=== PATIENT | female | born 1945 | race Caucasian/White ===

== ENCOUNTER → 2019-09-15 08:22 | Outpatient (BNVA) | payer MEDICARE, SELFPAY | PROVIDERS: PCP Nurse Practitioner Family; Referring Provider Neuromusculoskeletal Medicine & OMM; Visit Provider Nurse Practitioner Adult Health | DX: I67.9 Cerebrovascular disease, unspecified (principal); G45.4 Transient global amnesia | CPT/HCPCS: 99204 ==

== ENCOUNTER → 2020-03-07 08:19 | Outpatient (BNVA) | payer MEDICARE, SELFPAY | PROVIDERS: PCP Nurse Practitioner Family; Referring Provider Nurse Practitioner Family; Visit Provider Nurse Practitioner Adult Health | DX: G45.4 Transient global amnesia (principal); I67.9 Cerebrovascular disease, unspecified | CPT/HCPCS: 99213; 99441 ==

== ENCOUNTER → 2020-09-11 08:37 | Outpatient (BNVA) | payer MEDICARE, SELFPAY | PROVIDERS: PCP Nurse Practitioner Family; Referring Provider Nurse Practitioner Family; Visit Provider Nurse Practitioner Adult Health | DX: R41.3 Other amnesia (principal); G31.84 Mild cognitive impairment of uncertain or unknown etiology | CPT/HCPCS: 99213 ==

== ENCOUNTER → 2021-09-10 08:57 | Outpatient (BNVA) | payer MEDICARE, SELFPAY | PROVIDERS: PCP Neuromusculoskeletal Medicine & OMM; Referring Provider Neuromusculoskeletal Medicine & OMM; Visit Provider Nurse Practitioner Adult Health | DX: I67.9 Cerebrovascular disease, unspecified (principal); G45.4 Transient global amnesia | CPT/HCPCS: 99213 ==

== ENCOUNTER → 2022-09-02 08:37 | Outpatient (BNVA) | payer MEDICARE, SELFPAY | PROVIDERS: PCP Neuromusculoskeletal Medicine & OMM; Referring Provider Neuromusculoskeletal Medicine & OMM; Visit Provider Nurse Practitioner Adult Health | DX: I67.9 Cerebrovascular disease, unspecified (principal); G45.4 Transient global amnesia; Z79.02 Long term (current) use of antithrombotics/antiplatelets | CPT/HCPCS: 99213 ==

== ENCOUNTER 2022-10-23 03:29 | Outpatient (CLI) | payer MEDICARE, SELFPAY ==
--- NOTE | 2022-10-23 | DI.RAD_ITS ---
Exam(s) XR HIP RT COMPLETE AP PELVIS EXAM: XR HIP RT COMPLETE AP PELVIS INDICATION: PAIN RT HIP, [id number]. COMPARISON: No exams were available for comparison TECHNIQUE: 2D digital imaging was performed. Two views. FINDINGS: There is mild narrowing the right hip joint space. There is mild acetabular spurring. The left hip joint space is maintained. The SI joints and pubic symphysis are unremarkable. There are mild enthe sophytes from the iliac wings and greater trochanters. Surgical clips are noted in both groin region s. IMPRESSION: Wibx-ny-symmkaya degenerative changes of the right hip. DATA REPOSITORY: RADIATION DOSE DELIVERED:
== END 2022-10-23 03:49 ==
LOC: DI 03:29
PROVIDERS: PCP Neuromusculoskeletal Medicine & OMM; Visit Provider Neuromusculoskeletal Medicine & OMM
DX: M16.11 Unilateral primary osteoarthritis, right hip (principal)
CPT/HCPCS: 73502

== ENCOUNTER → 2022-12-05 08:48 | Outpatient (BNVA) | payer MEDICARE, SELFPAY | PROVIDERS: PCP Neuromusculoskeletal Medicine & OMM; Referring Provider Neuromusculoskeletal Medicine & OMM; Visit Provider Student in an Organized Health Care Education/Training Program | DX: M16.11 Unilateral primary osteoarthritis, right hip (principal) | CPT/HCPCS: 99213 ==

== ENCOUNTER 2023-01-29 02:25 | Outpatient (CLI) | payer MEDICARE, SELFPAY ==
[2023-01-29 15:32] LABS: HCT 43.9 % (36.0-46.0); HGB 14.3 g/dL (11.2-15.7); MCH 30.7 pg (27.0-33.0); MCHC 32.6 % (32.0-36.0); MCV 94 fL (80-95); MPV 9.1 fL (8.0-11.0); Platelet Count 266 10^3/uL (130-400); RBC 4.66 10^6/uL (3.93-5.22); RDW-SD 48.4 fL; WBC 7.29 10^3/uL (4.4-10.8)
[2023-01-29 15:55] LABS: Anion Gap 8.2 mmol/L (3-11); BUN 15 mg/dL (7-18); CO2 27.8 mmol/L (21.0-32.0); CREATININE 1.1 mg/dL (0.55-1.02); Calcium 9.7 mg/dL (8.5-10.1); Chloride 103 mmol/L (98-107); Glucose 99 mg/dL (74-106); Potassium 4.2 mmol/L (3.5-5.1); Sodium 139 mmol/L (136-145)
== END 2023-01-29 02:26 | disposition home or self-care (01) ==
LOC: LBO 02:25
PROVIDERS: PCP Neuromusculoskeletal Medicine & OMM; Visit Provider Student in an Organized Health Care Education/Training Program
DX: Z01.818 Encounter for other preprocedural examination (principal); M16.11 Unilateral primary osteoarthritis, right hip
CPT/HCPCS: 36415; 80048; 85027

== ENCOUNTER 2023-01-29 16:56 | Outpatient (CLI) | payer MEDICARE, SELFPAY ==
--- NOTE | 2023-01-29 14:13 | DI.RAD_ITS ---
Exam(s) XR PELVIS AP EXAM: XR PELVIS AP CLINICAL HISTORY: PRE OP R KALEN. TECHNIQUE: 2D digital imaging was performed. Supine AP with template ball. COMPARISON: CR XR HIP RT COMPLETE AP PELVIS from 10/23/2022 FINDINGS: Moderate narrowing of right hip joint space. Left hip joint space is maintained. Enthesophytes are noted at greater trochanters and iliac wings. Surgical clips and bilateral groin region. IMPRESSION: Stable degenerative changes of the right hip.. DATA REPOSITORY: RADIATION DOSE DELIVERED:
== END 2023-01-29 16:57 | disposition home or self-care (01) ==
LOC: DIORS 16:58
PROVIDERS: PCP Neuromusculoskeletal Medicine & OMM; Visit Provider Physician Assistant
DX: M16.11 Unilateral primary osteoarthritis, right hip (principal); Z01.818 Encounter for other preprocedural examination
CPT/HCPCS: 36415; 80048; 85027; 72170

== ENCOUNTER 2023-02-04 05:51 | Day surgery (SDC) | payer MEDICARE, SELFPAY ==
[2023-02-04] VITALS (14 sets, daily range): BP systolic 139–200; BP diastolic 64–112; PULSE 63–75; RESP 14–18; TEMP 36.1–36.5; O2SAT 94–97; BMI 40.2
[2023-02-04] MEDS: Celecoxib 200 MG CAP 400 MG PO (06:32)
[2023-02-04] MEDS: Acetaminophen 500 MG TAB 1000 MG PO (06:32)
[2023-02-04] MEDS: Lactated Ringers 1,000 ML 80 ML IV (06:55)
--- NOTE | 2023-02-04 06:58 | W.ANESPRE ---
General Info Date of Service Date Performed: 02/04/23 Height: 5 ft 5 in Weight: 109.8 kg Body Mass Index (BMI): 40.2 Surgical Procedure: Operation Date: 02/04/23 07:50 Proposed Procedure Side Surgeon p Hip Total Hip Anterior, ACTIS Right David Alfaro MD Meds Allergies and Home Medications Allergies Allergy/AdvReac Type Severity Reaction Status Date / Time animal dander Allergy Verified 02/04/23 06:12 house dust Allergy Verified 02/04/23 06:12 ragweed pollen Allergy Verified 02/04/23 06:12 Home Medication Medication Instructions Recorded calcium carbonate 500 mg-vitamin 1 tab PO BID 09/01/19 D3 10 mcg (400 unit) tablet hydrocortisone 2.5 % topical cream 1 applic topical BID PRN 09/01/19 simvastatin 20 mg tablet 20 mg PO QHS 09/01/19 furosemide 20 mg tablet 20 mg PO DAILY 09/10/21 metoprolol succinate 50 mg 50 mg PO DAILY 09/10/21 tablet,extended release 24 hr triamcinolone acetonide 0.1 % 1 applic topical BID 09/10/21 topical ointment clopidogrel 75 mg tablet See Rx Instructions .Route 04/22/22 .COMPLEX #90 tabs bupropion HCl 300 mg 24 hr tablet, 150 mg PO QAM 09/02/22 extended release acetaminophen 500 mg tablet 1,000 mg (2 x 500 mg) PO TID #90 02/04/23 tabs betamethasone, augmented 0.05 % applic topical 02/04/23 topical ointment celecoxib 200 mg capsule 200 mg PO BID #60 caps 02/04/23 dexamethasone 4 mg tablet 4 mg PO DAILY #2 tabs 02/04/23 oxycodone 5 mg tablet 5 mg PO Q4H PRN pain #20 tabs 02/04/23 pantoprazole 40 mg tablet,delayed 40 mg PO DAILY #30 tabs 02/04/23 release Current Visit Medications: Current Medications Generic Name Dose Route Start Last Admin Trade Name Freq PRN Reason Stop Dose Admin Acetaminophen 1,000 mg 02/04/23 06:00 02/04/23 06:32 Acetaminophen 500 Mg Tab PO 03/06/23 05:59 1,000 mg PREOP MANUELA Administration Celecoxib 400 mg 02/04/23 06:00 02/04/23 06:32 Celecoxib 200 Mg Cap PO 03/06/23 05:59 400 mg PREOP MANUELA Administration Tranexamic Acid 1,000 mg/ 60 mls @ 360 mls/hr 02/04/23 06:00 Sodium Chloride IV 03/06/23 05:59 PREOP MANUELA Ringer's Solution 1,000 mls @ 80 mls/hr 02/04/23 06:00 IV 02/04/23 23:59 INFUSION MANUELA Cefazolin Sodium/Dextrose 2 gm in 50 mls @ 100 mls/hr 02/04/23 06:00 Ancef Duplex IVPB 02/04/23 23:59 PREOP MANUELA IV Miscellaneous Supplies 1 each 02/04/23 06:00 Iv Access IV 02/04/23 23:59 DIRECTED MANUELA Sodium Chloride 0 ml 02/04/23 06:00 Normal Saline Flush 10 Ml Syr IV 02/04/23 23:59 PRN PRN Sodium Chloride 0 ml 02/04/23 06:00 Normal Saline 10 Ml Vial IJ 02/04/23 23:59 DIRECTED PRN Sterile Water 0 ml 02/04/23 06:00 Water,Injection,Sterile 10 Ml Vial IJ 02/04/23 23:59 DIRECTED PRN PFSH Active Problems Active Problems: Problem Status Onset Code Primary osteoarthritis of right hip M16.11 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 Small vessel disease, cerebrovascular I67.9 Medical History Medical History Arthralgia of ankle Arthropathy Chronic left hip pain Contact dermatitis Depressive disorder Diverticulitis Fibromyalgia Hyperlipidemia Low back pain Memory impairment Mild intermittent asthma MATHEWS (nonalcoholic steatohepatitis) Obesity Obstructive sleep apnea Osteoporosis Pain, joint, knee, right Phlebitis Rosacea Tension type headache Varicose vein of leg Surgical History Surgical History H/O vein stripping Hx of section Tobacco Smoking/Tobacco Use Status: Former Tobacco Use Alcohol Alcohol Intake: current Alcohol intake frequency: a few times a week Alcohol type: beer and wine Details: 2-3 GLASSES OF WINE WEEK Substance Use Substance use: Never Substance use type: does not use Details: alcohol: t-4, 2 glasses of wine Vital Signs and Lab Results Vital Signs Most Recent Vital Signs in EMR: Most Recent Vital Signs Temp Pulse Resp BP Pulse Ox 36.3 C L 75 18 170/103 H 97 11/15/23 06:17 02/04/23 06:17 02/04/23 06:17 02/04/23 06:17 02/04/23 06:17 Lab Results Blood Type / Crossmatch: No Data to Display Complete Blood Count: White Blood Count 7.29 10^3/uL (4.4-10.8) 01/29/23 15:25 Red Blood Count 4.66 10^6/uL (3.93-5.22) 01/29/23 15:25 Hemoglobin 14.3 g/dL (11.2-15.7) 01/29/23 15:25 Hematocrit 43.9 % (36.0-46.0) 01/29/23 15:25 Platelet Count 266 10^3/uL (130-400) 01/29/23 15:25 Complete Metabolic Panel: Sodium 139 mmol/L (136-145) 01/29/23 15:25 Potassium 4.2 mmol/L (3.5-5.1) 01/29/23 15:25 Chloride 103 mmol/L (98-107) 01/29/23 15:25 Carbon Dioxide 27.8 mmol/L (21.0-32.0) 01/29/23 15:25 BUN 15 mg/dL (7-18) 01/29/23 15:25 Creatinine 1.1 mg/dL (0.55-1.02) H 01/29/23 15:25 Est GFR (CKD-EPI 2020) 52.40 (mL/min/1.73m2) 01/29/23 15:25 Calcium 9.7 mg/dL (8.5-10.1) 01/29/23 15:25 Glucose 99 mg/dL (74-106) 01/29/23 15:25 Liver Function Panel: No Data to Display Coagulation Panel: No Data to Display Cardiac Panel: No Data to Display Arterial Blood Gas: No Data to Display Venous Blood Gas: No Data to Display Pancreas Panel: No Data to Display Thyroid Panel: No Data to Display Infectious Disease: No Data to Display Blood Cultures: No Data to Display Toxicology Panel: No Data to Display Anesthesia Assessment and Plan Anesthesia History Personal History: No History of Anesthesia Complications Family History: No Family History of Anesthesia Complications Exercise Tolerance Exercise Tolerance: Metabolic Equivalents<4 Pertinent Negatives Pertinent Negatives: No Symptoms of GERD, No Major Cardiovascular Symptoms or Complaints and No Major Pulmonary Symptoms or Complaints Cardiac & Pulmonary Exam Cardiac Exam: Normal S1/S2 Heart Sounds Pulmonary Exam: Clear Bilateral Breath Sounds Implantable Cardiac Device Does patient have a Pacemaker or an ICD?: No Airway Exam Known Difficult Airway: No Mallampati Class: 3 Mouth Opening: Normal (> 3cm) Thyromental Distance: Greater than 3 cm Neck Range of Motion: Full ROM Neck Circumference: Thick Teeth Condition: Normal Dentition ASA Classification ASA Score: ASA 3 Emergency Case?: No NPO Status NPO Status: NPO Clears >2 hours, Solids >8 hours Anesthesia Plan Resuscitation Status: Full Code Anesthesia Technique: Spinal Anesthesia Airway Planned: Natural Airway Monitors Used: Standard Monitors Preoperative Comments:: GETA backup if difficult spinal, off Plavix 6 days ALYSSIA, instructed preop to use CPAP for any nap/sleep for next couple of days
--- NOTE | 2023-02-04 07:00 | DI.RAD_ITS ---
Exam(s) XR HIP RT IN OR EXAM: XR HIP RT IN OR CLINICAL HISTORY: right hip osteoarthritis. TECHNIQUE: 2D digital imaging was performed. COMPARISON: No exams were available for comparison FINDINGS: Fluoroscopy provided during hip arthroplasty. See procedure report for details Total fluoroscopy time 44 seconds IMPRESSION: Radiation exposure index/cumulative dose: iggy Mackenzie= 11.473mGy DATA REPOSITORY: RADIATION DOSE DELIVERED:
--- NOTE | 2023-02-04 07:16 | PDOC.DSDIS_ITS ---
Date of service: 02/04/23 Time of Service: 07:16 Discharge Plan Disposition Patient Disposition: Home Condition: Good Discharge Details Reason For Visit: R THR Attending Provider: David Alfaro Primary Care Provider: Martin George [facility] and New Rx's Prescriptions: New acetaminophen 500 mg tablet 1,000 mg PO TID Qty: 90 3RF celecoxib 200 mg capsule 200 mg PO BID Qty: 60 0RF pantoprazole 40 mg tablet,delayed release (DR/EC) 40 mg PO DAILY Qty: 30 0RF dexamethasone 4 mg tablet 4 mg PO DAILY Qty: 2 0RF oxycodone 5 mg tablet 5 mg PO Q4H MDD 6 tabs PRN (Reason: pain) Qty: 20 0RF aspirin 81 mg tablet,delayed release (DR/EC) 81 mg PO DAILY Qty: 30 0RF Continued metoprolol succinate 50 mg tablet extended release 24 hr 50 mg PO DAILY furosemide 20 mg tablet 20 mg PO DAILY triamcinolone acetonide 0.1 % ointment 1 applic topical BID bupropion HCl 300 mg tablet extended release 24 hr 150 mg PO QAM Rx Instructions: take one tablet by mouth everyday by oral route for 30 days. calcium carbonate-vitamin D3 500 mg(1,250mg) -400 unit tablet 1 tab PO BID hydrocortisone 2.5 % cream 1 applic TP BID PRN simvastatin 20 mg tablet 20 mg PO QHS clopidogrel 75 mg tablet See Rx Instructions .ROUTE .COMPLEX Qty: 90 3RF Dose Instruction: TAKE 1 TABLET BY MOUTH DAILY Rx Instructions: TAKE 1 TABLET BY MOUTH DAILY betamethasone, augmented 0.05 % ointment TOPICAL Patient Comments: APPLY TOPICALLY TWO TIMES A DAY Discharge Instructions Additional Instructions: Total Hip Discharge Instructions Activity: The most important activity is to walk. You should try to take short walks a few times a day. You have no restrictions on movement or positioning, but do not try to force what you do. You will find some stiffness and weakness with hip flexion (lifting your knee). Do not try to strengthen this too early, continue to practice walking and stairs and this will come. - Outpatient physical therapy can be helpful to help return you to a normal gait and improve your flexibility and strength. This can start around 2 weeks. For some patients, it?s not necessary. Usually this is determined at the time of discharge or at the first post-operative visit. - You should wear the MURPHY hose on both legs for 2 weeks. Dressing: Keep the surgical dressing in place for at least one week. After the first week it may be removed and replace with light gauze and tape or nothing. It may get wet after 3 days but avoid soaking the dressing. If it gets wet, just lightly pat dry. It is important to always keep some gauze between skin folds, especially when you are sitting. Spend some time with the wound exposed when you are lying flat as the incision does wrinkle onto itself. Medications: - You should take Tylenol and an anti-inflammatory Celebrex as your primary pain control medications. If the Celebrex is too expensive or not covered, please call the office for another alternative (Advil/Ibuprofen or Naproxen/Aleve). - You have been prescribed a stronger pain medication Oxycodone for breakthrough pain, take as needed as prescribed. - You have also been prescribed a stomach acid reduction agent Pantoprozole to help reduce stomach acid and reflux. - You have also been prescribed Decadron to help with post-operative nausea and pain. You will take this for two days starting tomorrow. - You will will continue your clopidogrel along with an asprin daily which will help with DVT prevention. - If you have constipation you should take Colace or Miralax (both [id number]). It takes most people 3-4 days to have a bowel movement. Follow-up: 2 weeks If you have any acute concerns or questions, please do not hesitate to contact the office at [phone]. You may contact Dr. Alfaro with any questions after hours through the hospital at [phone] or on his cell phone at [phone]. Stand Alone Forms: Anesthesia Discharge Inst., Sharron Elias (DSU) Referrals: David Alfaro MD [ [facility] STAFF PHYSICIAN] - 02/19/23 11:45 am Equipment/Supplies: Walker Activity:: Activity as Tolerated Shower/Bathe:: 72 hours Diet:: As Tolerated Discharge Orders Discharge Orders: Discharge Order (Routine); Ordered 02/04/23 Ordered By: Clement Owen DS: Diagnosis Discharge Diagnosis (1) Primary osteoarthritis of right hip: Status: Acute
--- NOTE | 2023-02-04 07:18 | NUR.NOTE ---
0718: aware of red area in R groin. spoke to pt. about the area. Nursing Note:
[2023-02-04] MEDS: ceFAZolin 2 GM/50 ML BAG IVPB (07:30)
[2023-02-04] MEDS: fentaNYL 100 MCG/2 ML VIAL IVP ×4 (09:19→10:34)
--- NOTE | 2023-02-04 09:39 | W.PM.OP ---
Date of service: 02/04/23 Time of Service: 07:40 Operative Note Operative Note DATE OF PROCEDURE: 02/04/23 PRE-OP DIAGNOSIS: Right Hip Osteoarthritis POST-OP DIAGNOSIS: same PROCEDURE: Right Anterior Total Hip Arthroplasty SURGEON: David Alfaro LEGGER PRESS OPERATOR: Clement Owen ANESTHESIA TYPE: Spinal Refer to Anesthesia Record ESTIMATED BLOOD LOSS: 100 PATHOLOGY: none sent TOURNIQUET TIME: 0 COMPLICATIONS: None Patient was transported to: PACU Patient's condition: stable Implants: 1. Depuy [place] Acetabular Component, 50mm 2. Depuy Acetabular Liner, [id number] 3. Depuy Actis Standard Collared Femoral Stem, Size 5 4. Depuy Altrx Ceramic Femoral Head, Size 32+5mm Indications: I have seen Hawa in clinic for symptoms of hip arthritis, confirmed with radiographic findings. She has exhausted nonoperative methods and was having significant limitations in daily function and desired better function and less pain. I discussed the technical details of a hip replacement. I explained the risks of the procedure to include, but not limited to, bleeding, infection, pain, stiffness, fracture, damage to nerves and vessels, damage to muscles and tendons, loosening, instability, leg length inequality, need for repeat procedure, blood clot and cardiopulmonary demise. Despite these risks, Hawa elected to proceed. Findings: There was significant signs of arthritis throughout the hip. Procedure Description: Hawa was greeted in the preoperative holding area where the correct side was identified and marked. The consent was reviewed with the patient and signed. The history and physical was updated. All questions were answered. She was taken back to the operating room. A spinal anesthestic was then administered. The feet were wrapped with cast padding and Coban and then placed into the boot liners and then into the boots. Care was taken to protect the skin and make sure the heels were fully down and the boots were stable. The patient was then positioned onto the HANA table. Both legs were held in a neutral position. SCDs were applied. The patient was then slid down onto a peroneal post. Prophylactic antibiotics in the form of Cefazolin were administered. 1g of Tranxemic Acid was given intravenously within 30 minutes of incision. The right leg was then prepped with Chloraprep and draped in a standard fashion. A second prep with Chloraprep was performed prior to placement of a shower-curtain type drape with Iodine impregnated skin protection. A timeout to confirm correct identity, side and site, procedure, allergies, anesthesia, and medical concerns was performed. An obliquely oriented incision was made starting lateral to the ASIS and running distal over the Tensor Fascia Nora (TFL) muscle belly toward the fibular head, approximately 10cm. The skin and soft tissue was dissected sharply, through Jacey?s fascia, and to the fascia of the TFL. With the fascia and superior border of the IT band identified, the fascia was incised with a new knife just above any perforators from the IT band. The TFL muscle belly was bluntly dissected away from the fascia and moved laterally. The fat between TFL and rectus was identified to ensure the dissection was not within the TFL. Blunt dissection created space between abductors and the capsule and retractor was placed over the lateral femoral neck. The fibers of the rectus femoris tendon were identified and these were freed from the anterior capsule. A second cobra retractor was placed around the medial femoral neck. The TFL was further retracted laterally to show the deep fascia. Careful dissection through this layer identified three main crossing vessels of the lateral femoral circumflex. These were cauterized in multiple locations and then cut without any noticeable bleeding. The TFL was further released bluntly from the deep fascia to expose anterior hip capsule and fat The Magdaleno orthopaedic retractor was then placed beneath the TFL and against sartorius and medial soft tissues to protect and retract the soft tissues. A T-capsulotomy was then performed starting at the superior lateral acetabulum and moving distally to the intertrochanteric ridge. These capsular flaps were tagged with a No. 1 Ethibond and elevated from within. The capsular flaps were released to the shoulder of the lateral neck and to the lesser trochanter to give excellent visualization of the proximal femur. A neck osteotomy was performed using an oscillating saw based on preoperative templates. This cut started in the shoulder and of the lateral neck and exited medially. The saw was at all times directed medially to avoid injury to the greater trochanter. Gross traction was applied to the leg and the osteotomy opened. The femoral head was removed with a corkscrew, making sure to protect the TFL on its exit. Traction was released after head removal. This was measured on the back table to determine the starting reamer size. Portions of the rectus obscuring visualization were minimally elevated off the superior acetabulum. An anterior retractor was placed over the anterior wall between capsule and labrum and attached to the Gripper retraction system. The femur was rotated to 90 degrees and medial capsule was fully released until the lesser trochanter was palpable and visible; the femur was returned to 30 degrees. A posterior retractor was placed similarly between capsule and labrum. This provided excellent visualization. The contents of the cotyloid fossa were removed with electrocautery and the labrum was removed with a knife. There was a notable floor osteophyte. There was significant chondromalacia of the superior acetabulum. Acetabular reaming began with a 46mm reamer. This first reaming was directed anterior to posterior and medial to get down to the true floor. This was inspected and reamed until the true floor was reached. The anterior retractor was then released and entry and exit was provided by traction on the capsular flaps. I then reamed sequentially up to a 50mm reamer where good fit was obtained. The larger reamers were oriented based on anatomical reference of the anterior and lateral wolf to ensure proper abduction and anteversion. Positioning and size was confirmed with the fluoroscopy. A 50mm Depuy [place] acetabular component was selected. The acetabulum was reamed around the periphery with the selected acetabular size to prevent a rim fit. The deep tissues were irrigated. The acetabular component was then impacted in a position of about 40-45 degrees of abduction and 15-20 degrees of anteversion, using the patient?s anatomy as the ultimate landmark. Fluoroscopy was used to confirm this. There was excellent manufacturing director of the acetabular component and the inserting handle was removed. The acetabular liner, Depuy [id number] polyethylene liner, was inserted and lined up with the tines of the acetabular component. There was no soft tissue interposition. The liner was then impacted into position and confirmed to be well-seated. A portion of the nida-articular cocktail was then injected around the acetabulum into the capsule and periosteum. This cocktail consisted of 123mg of Ropivacaine, 0.25mg of Epinephrine, 0.04mg of Clonidine, and 15mg of Ketorolac, diluted to 50cc. The leg was rotated to 120 degrees. Any remaining medial capsule was released until the lesser trochanter was easily palpable. A retractor was placed medially. The lateral capsule was further released into the shoulder to allow access to the greater trochanter. A Swift retractor was placed over the greater trochanter which allowed the trochanter to flip in front of the capsule for excellent exposure. The leg was brought down into maximal extension and 20 degrees of adduction while ensuring there was no impingement on the acetabulum. Any remnant capsule within the trochanter was released. Piriformis and obturator externis were identified and protected. There was excellent access to the proximal femur. The lateral neck remnant was removed with a rongeur. A blunt canal probe was used to identify the canal and trajectory for later broaching. A box osteotome initiated the broach course. A small curved rasp and a curved curette were used to work laterally. Broaching then began with a starter Actis broach. This was inserted manually around the trochanter and into the canal before mallet blows. The broach was seated to a few millimeters below the cut level based on the neck cut and the preoperative template. Sequential broaching was continued with the [employer] pneumatic broaching device until a tight fit was obtained with good rotational control of the femur. A trial standard neck was inserted along with a +1 trial head. The leg was brought out of extension and adduction and then reduced with traction and internal rotation. The leg was stable anteriorly in a position of 30 degrees of extension and 90 degrees of external rotation. Fluoroscopy was used to ensure there was no fracture and the stem was seated well. Leg lengths were checked with an AP pelvis and pelvic reference points and an alignment keli. Once content with the desired offset and leg lengths, the leg was brought back into extension, external rotation and adduction. The periosteum and surrounding tissue was injected with remaining portion of the nida-articular cocktail. The proximal femur was irrigated as well as the deep tissues. The [employer] naayais standard collared stem, size 5, was then manually inserted into the proximal femur making sure to control rotation. It was then malleted into position with light blows, giving breaks to allow bone expansion and decrease risk of fracture. The selected Depuy Altrx Ceramic Head, size 32+5mm, was then placed onto the clean and dry trunnion and secured with impaction onto the tapered fit. The leg was brought back out of extension and adduction and reduced with traction and internal rotation. Stability was confirmed with no shuck at 90 degrees of external rotation and 30 degrees of extension. No impingement through range of motion arc. Final x-ray images were obtained with fluoroscopy to confirm adequate positioning and no intraoperative fracture. The deep tissues were thoroughly irrigated with Surgiphor, betadine solution. This was allowed to sit in the wound for 3 minutes before being thoroughly irrigated out with normal saline. The capsule was then reapproximated with the previously placed Ethibond sutures. The TFL fascia was finally closed with a No. 2 Stratafix, barbed suture. Deep tissues were then reapproximated with 0 Vicryl and a running 2-0 Vicryl. The skin was closed with a running 4-0 Monocryl in a subcuticular fashion. This was reinforced with skin glue. A Mepilex silver dressing was applied. At the end of the case, all counts were correct. Hawa was transferred to the hospital bed without difficulty and suffering no apparent complication. Hawa has a good prognosis. Physical therapy will start today and without restrictions, weight-bearing as tolerated. Aspirin and Plavix will be used for DVT prophylaxis.
--- NOTE | 2023-02-04 11:47 | PT.INIE ---
PT Notes Visit Reasons: R THR Physical Therapy Day Surgery Initial Evaluation Date: 02/04/2023 Referring Doctor: ARABELLA Lucio PT Orders: PT CONSULT: S/pP Ortho surgery Precautions: WBAT on right LE with AD. Patient Profile/Admitting Diagnosis: Hawa is a 77-year-old female with primary unilateral osteoarthritis of the right hip and is status post right total anterior hip arthroplasty on postoperative day 0. PMHX: Medical History Arthralgia of ankle Arthropathy Chronic left hip pain Contact dermatitis Depressive disorder Diverticulitis Fibromyalgia Hyperlipidemia Low back pain Memory impairment Mild intermittent asthma MATHEWS (nonalcoholic steatohepatitis) Obesity Obstructive sleep apnea Osteoporosis Pain, joint, knee, right Phlebitis Rosacea Tension type headache Varicose vein of leg Surgical History H/O vein stripping Hx of section Social History/Home Situation: Lives with in a private home with 3 steps to enter with rails on both sides. Independent with the use of single-point cane indoors and outdoors prior to surgery. Equipment Owned/DME: [facility], [facility] Subjective: Reports pain in the right hip at 4?5/10 pain at rest that mildly increased after ambulation activity. denies headache, chest pain, and lightheadedness throughout session. Objective: General Observation: Seated on bedside chair. Mepilex Ag over surgical incision. TEDS to be legs. present in room throughout session. Mental Status: Alert and oriented x 4 Pain: As above ROM: Right Lower Extremity: Hip flexion allows up to about 110 before onset of pain. Hip abduction WFL. Knee flexion WFL. Ankle dorsiflexion WFL. Ankle plantarflexion WFL. Left Lower Extremity: Hip flexion WFL. Hip abduction WFL. Knee flexion WFL. Ankle dorsiflexion WFL. Ankle plantarflexion WFL Strength: Right Lower Extremity: Hip flexors 3-/5. Hip abductors 4/5. Knee flexors 4/5. Knee extensors 4-/5. Ankle dorsiflexors 5/5. Ankle plantarflexors 5/5. Left Lower Extremity:Hip flexors 5/5. Hip abductors 5/5. Knee flexors 5/5. Knee extensors 5/5. Ankle dorsiflexors 5/5. Ankle plantarflexors 5/5. Sensation: Intact as to pain and light pressure in B LE Bed Mobility/Transfers: Minimal cues provided for use of B UE for support, movement sequence, and AD management Supine to sit stand by assist Sit to stand stand by assist Stand to sit contact-guard assist Bed to chair stand by assist Gait: Facilitated safe and correct performance of level surface ambulation covering a distance of 150 feet using front-wheeled walker with standby assist and minimal verbal cueing provided for reciprocal step through heel toe gait pattern. Stairs: Guided patient with safe and correct negotiation of 3 x 4-inch steps and 2 x 6 inch steps holding onto bilateral rails with step to gait pattern requiring only standby assist and minimal verbal cueing for movement sequence and overall safety. Balance: Static Sitting: Normal Dynamic Sitting: Normal Static Standing: Fair Dynamic Standing: Fair Special Tests: Mobility Limitations Standardized Measure [facility] AM-PAC 6 clicks Basic Mobility Inpatient Short Form: Raw Score: 22 CMS Score: 21% deficit Informed Consent/Education: Patient instructed in purpose of PT consult. Packet containing KALEN exercise protocol has been given to patient. Education and training on initial set of exercises that can be done at home have been completed with patient. Trained patient with correct performance of exercises below to maximize motor control, joint flexibility, soft tissue extensibility of the R hip musculature to facilitate return to independent functional mobility performance. Access Code: [email or web address] URL: [email or web address] Date: 02/04/2023 Prepared by: Carly Izquierdo Exercises - Gluteal Sets - 1 x daily - 7 x weekly - 1 sets - 10 reps - 5 hold - Supine Heel Slide - 1 x daily - 7 x weekly - 1 sets - 10 reps - 5 hold - Supine Ankle Pumps - 1 x daily - 7 x weekly - 1 sets - 10 reps - 5 hold - Seated March - 1 x daily - 7 x weekly - 1 sets - 10 reps - 5 hold - Seated Long Arc Quad - 1 x daily - 7 x weekly - 1 sets - 10 reps - 5 hold Assessment: Patient requires the use of a front wheeled walker for all mobility ADL performance to maximize independence and reduce fall risk. Patient presents with clinical signs and symptoms consistent with current/admitting diagnoses that have resulted to mobility limitations, gait instability, generalized weakness, and impairment of motor control as demonstrated by the following impairment level findings: 1. Decreased strength to right hip major muscle groups 2. Impaired standing balance 3. Limitation of joint range of motion in right hip Impairments are contributing to the following functional limitations: 1. Inability to safely ambulate without assistive device 2. Increase completion time for mobility ADL performance 3. Increased fall risk Patient is assessed as a 89110 moderate complexity based on the following: History: 77-year-old female with impairment level findings, functional limitations, and past medical history as indicated above Examination: Demonstrable impairment in strength, balance, and mobility level with underlying impairments and functional limitations as documented above Presentation: Evolving Decision Makin moderate complexity Goals: N/A. PT evaluation and 1-2 treatment sessions only for functional mobility training using recommended AD and for HEP instruction. Plan of Care/Treatment Plan: N/A. PT evaluation and 1-2 treatment session only for functional mobility training using recommended AD and for HEP instruction. DISCHARGE RECOMMENDATIONS: Discharge recommendations TREATMENT CODE/TIME: 51830 x 29 minutes for 1 unit beginning at 11:47 AM. Thank you for the opportunity to participate in the care of this patient. Carly Izquierdo PT, DPT, CLT [facility] [place], [place]
[2023-02-04] MEDS: oxyCODONE 5 MG TAB PO (11:48)
--- NOTE | 2023-02-04 12:59 | W.ANESPOSTOP ---
Postoperative Evaluation Date, Time and Location Date Performed: 02/04/23 Time Performed: 12:46 Patient Location: Day Surgery Unit Vital Signs Most Recent Imported Vital Signs: Most Recent Vital Signs Temp Pulse Resp BP Pulse Ox 36.3 C L 74 18 160/64 H 94 02/04/23 11:50 02/04/23 11:50 02/04/23 11:50 02/04/23 11:50 02/04/23 11:50 Pain Score Most Recent Pain Score: Most Recent Pain Score Pain Level 5 02/04/23 11:50 Assessment Mental Status: Awake (Alert & Oriented to Patient Baseline) Airway and Respiratory Function: Patent airway with normal (patient baseline) respiratory exam Cardiovascular Function: Hemodynamically Stable Hydration Status: Adequately Hydrated Nausea & Vomiting: No Nausea or Vomiting Pain: Pain is tolerable per patient Peripheral Nerve Block: Patient did not receive a nerve block
== END 2023-02-04 13:15 | disposition home or self-care (01) ==
PROVIDERS: PCP Neuromusculoskeletal Medicine & OMM; Visit Provider Student in an Organized Health Care Education/Training Program
PROC: (CPT 27130; principal; 2023-02-04 07:30)
DX: M16.11 Unilateral primary osteoarthritis, right hip (principal); E78.5 Hyperlipidemia, unspecified; J45.20 Mild intermittent asthma, uncomplicated; G47.33 Obstructive sleep apnea (adult) (pediatric); M79.7 Fibromyalgia; M81.0 Age-related osteoporosis without current pathological fracture
CPT/HCPCS: 27130; C1776; 97162; 73501; J0690; J1100; J2250; J2405; J3010

== ENCOUNTER 2023-02-19 13:53 | Outpatient (CLI) | payer MEDICARE, SELFPAY ==
--- NOTE | 2023-02-19 11:00 | DI.RAD_ITS ---
Exam(s) XR HIP RT COMPLETE AP PELVIS EXAM: XR HIP RT COMPLETE AP PELVIS CLINICAL HISTORY: 1ST POST OP R KALEN. TECHNIQUE: 2D digital imaging was performed. Two images were obtained. AP pelvis and lateral views were obtained. COMPARISON: CR XR HIP RT COMPLETE AP PELVIS from 10/23/2022 XA XR HIP RT IN OR from 02/04/2023 FINDINGS: BONES: There are stable post operative changes of a right total hip replacement present. No fracture or dislocation. JOINTS: The orthopedic hardware is in good position. No evidence of hardware loosening. SOFT TISSUE: Surgical clips are seen in the inguinal regions bilaterally. IMPRESSION: Stable postoperative changes. DATA REPOSITORY: RADIATION DOSE DELIVERED:
== END 2023-02-19 13:54 | disposition home or self-care (01) ==
LOC: DIORS 13:54
PROVIDERS: PCP Neuromusculoskeletal Medicine & OMM; Visit Provider Student in an Organized Health Care Education/Training Program
DX: Z96.641 Presence of right artificial hip joint (principal); Z47.1 Aftercare following joint replacement surgery
CPT/HCPCS: 73502

== ENCOUNTER → 2023-03-19 09:42 | Outpatient (BNVA) | payer MEDICARE, SELFPAY | PROVIDERS: PCP Neuromusculoskeletal Medicine & OMM; Referring Provider Neuromusculoskeletal Medicine & OMM | DX: Z47.1 Aftercare following joint replacement surgery (principal); Z96.641 Presence of right artificial hip joint ==

== ENCOUNTER → 2023-04-27 09:10 | Outpatient (BNVA) | payer MEDICARE, SELFPAY | PROVIDERS: PCP Neuromusculoskeletal Medicine & OMM; Referring Provider Neuromusculoskeletal Medicine & OMM; Visit Provider Student in an Organized Health Care Education/Training Program | DX: Z47.1 Aftercare following joint replacement surgery (principal); Z96.641 Presence of right artificial hip joint ==

== ENCOUNTER → 2023-09-10 08:41 | Outpatient (BNVA) | payer MEDICARE, SELFPAY | PROVIDERS: PCP Neuromusculoskeletal Medicine & OMM; Referring Provider Neuromusculoskeletal Medicine & OMM | DX: M17.12 Unilateral primary osteoarthritis, left knee (principal) | CPT/HCPCS: 20610; J1010 ==

== ENCOUNTER → 2023-12-11 08:37 | Outpatient (BNVA) | payer MEDICARE, SELFPAY | PROVIDERS: PCP Neuromusculoskeletal Medicine & OMM; Referring Provider Neuromusculoskeletal Medicine & OMM | DX: M17.12 Unilateral primary osteoarthritis, left knee (principal) | CPT/HCPCS: 20610; J1010 ==

== ENCOUNTER 2024-02-08 09:16 | Outpatient (CLI) | payer MEDICARE, SELFPAY ==
--- NOTE | 2024-02-08 09:10 | DI.RAD_ITS ---
Exam(s) XR HIP RT AP LAT ONLY EXAM: XR HIP RT AP LAT ONLY CLINICAL HISTORY: ANNUAL F/U R KALEN. TECHNIQUE: 2D digital imaging was performed. COMPARISON: CR XR HIP RT COMPLETE AP PELVIS from 02/19/2023 FINDINGS: Two views Stable position alignment of the components of the right hip prosthesis. No fracture or loosening ev ident. IMPRESSION: Stable satisfactory appearance DATA REPOSITORY: RADIATION DOSE DELIVERED:
== END 2024-02-08 09:17 | disposition home or self-care (01) ==
LOC: DIORS 09:16
PROVIDERS: PCP Neuromusculoskeletal Medicine & OMM; Visit Provider Student in an Organized Health Care Education/Training Program
DX: Z47.1 Aftercare following joint replacement surgery (principal); M17.12 Unilateral primary osteoarthritis, left knee; Z96.641 Presence of right artificial hip joint
CPT/HCPCS: 99213; 73502

== ENCOUNTER 2024-03-10 02:49 | Outpatient (CLI) | payer MEDICARE, SELFPAY ==
[2024-03-10 11:31] LABS: HCT 45.2 % (36.0-46.0); HGB 14.5 g/dL (11.2-15.7); MCH 30.9 pg (27.0-33.0); MCHC 32.1 % (32.0-36.0); MCV 96 fL (80-95); MPV 9.2 fL (8.0-11.0); Platelet Count 253 10^3/uL (130-400); RDW 13.8 % (11.7-14.6); RDW-SD 49.1 fL; WBC 7.46 10^3/uL (4.4-10.8)
[2024-03-10 11:50] LABS: Anion Gap 7.5 mmol/L (3-11); BUN 13 mg/dL (7-18); CO2 30.5 mmol/L (21.0-32.0); CREATININE 1.1 mg/dL (0.55-1.02); Chloride 105 mmol/L (98-107); Estimated GFR 52.08 (mL/min/1.73m2); Glucose 87 mg/dL (74-106); Potassium 4.1 mmol/L (3.5-5.1); Sodium 143 mmol/L (136-145)
== END 2024-03-10 02:50 | disposition home or self-care (01) ==
LOC: LBO 02:50
PROVIDERS: PCP Neuromusculoskeletal Medicine & OMM; Visit Provider Student in an Organized Health Care Education/Training Program
DX: M17.12 Unilateral primary osteoarthritis, left knee (principal); Z01.818 Encounter for other preprocedural examination
CPT/HCPCS: 36415; 80048; 85027; 99024; 77073

== ENCOUNTER 2024-03-10 15:30 | Outpatient (CLI) | payer MEDICARE, SELFPAY ==
--- NOTE | 2024-03-10 10:15 | DI.RAD_ITS ---
Exam(s) XR STANDING ALIGNMENT EXAM: XR STANDING ALIGNMENT CLINICAL HISTORY: TKR Planning. TECHNIQUE: 2D digital imaging was performed. Four images were obtained. COMPARISON: CR XR KNEE COMPLETE MIN 4V LT from 08/15/2023 CR XR HIP RT AP LAT ONLY from 02/08/2024 FINDINGS: The examination is limited due to the patient's body habitus. BONES: There is again seen a right total hip arthroplasty. In the right knee, there is mild narrowin g of the medial femoral tibial joint. In the left knee, there is moderate narrowing of the medial fe moral tibial joint. There is also mild spurring of the medial proximal tibia. The ankles are well m aintained.There is no significant leg length discrepancy. SOFT TISSUE: Surgical clips are seen in the inguinal regions bilaterally. IMPRESSION: Degenerative changes in the knees, left greater than right. DATA REPOSITORY: RADIATION DOSE DELIVERED:
== END 2024-03-10 15:31 | disposition home or self-care (01) ==
LOC: DIORS 15:31
PROVIDERS: PCP Neuromusculoskeletal Medicine & OMM; Visit Provider Physician Assistant
DX: M17.12 Unilateral primary osteoarthritis, left knee (principal); Z01.818 Encounter for other preprocedural examination
CPT/HCPCS: 77073

== ENCOUNTER 2024-03-22 07:08 | Day surgery (SDC) | payer MEDICARE, SELFPAY ==
[2024-03-22] VITALS (21 sets, daily range): BP systolic 104–189; BP diastolic 51–124; PULSE 70–82; RESP 15–24; TEMP 36–36.4; O2SAT 94–97; BMI 43.2
--- NOTE | 2024-03-22 07:32 | W.PM.DSUDISC ---
Date of service: 03/22/24 Discharge Plan Disposition Patient Disposition: Home Condition: Good Discharge Details Reason For Visit: Left knee DJD Attending Provider: David Alfaro Primary Care Provider: Martin George [place] Meds and New Rx's Prescriptions: New celecoxib [Celebrex] 200 mg capsule 200 mg PO BID PRNQty: 60 0RF Rx Instructions: Take one tablet twice daily for pain and inflammation acetaminophen 500 mg tablet 1,000 mg PO Q8H PRN Qty: 90 0RF Rx Instructions: Take two tablets up to every 8 hours as needed for pain pantoprazole 40 mg tablet,delayed release (DR/EC) 40 mg PO DAILY Qty: 14 0RF dexamethasone 4 mg tablet 4 mg PO DAILY Qty: 2 0RF Rx Instructions: Take one tablet once daily for two days docusate sodium [Colace] 100 mg capsule 100 mg PO BID Qty: 30 0RF gabapentin 300 mg capsule 300 mg PO QHS Qty: 14 0RF Rx Instructions: Take one tablet at bedtime oxycodone 5 mg tablet 5 mg PO Q4H PRNQty: 18 0RF Rx Instructions: Take one tablet up to every 4 hours as needed for severe postoperative pain aspirin 81 mg tablet,delayed release (DR/EC) 81 mg PO BID Qty: 60 0RF Continued metoprolol succinate 50 mg tablet extended release 24 hr 50 mg PO DAILY furosemide 20 mg tablet 20 mg PO DAILY triamcinolone acetonide 0.1 % ointment 1 applic topical BID bupropion HCl 300 mg tablet extended release 24 hr 150 mg PO QAM Rx Instructions: take one tablet by mouth everyday by oral route for 30 days. calcium carbonate-vitamin D3 500 mg(1,250mg) -400 unit tablet 1 tab PO BID hydrocortisone 2.5 % cream 1 applic TP BID PRN simvastatin 20 mg tablet 20 mg PO QHS clopidogrel 75 mg tablet See Rx Instructions .ROUTE .COMPLEX Qty: 90 3RF Dose Instruction: TAKE 1 TABLET BY MOUTH DAILY Rx Instructions: TAKE 1 TABLET BY MOUTH DAILY betamethasone, augmented 0.05 % ointment 1 applic TOPICAL BID Patient Comments: APPLY TOPICALLY TWO TIMES A DAY Discontinued acetaminophen 500 mg tablet 1,000 mg PO TID Qty: 90 3RF Discharge Instructions Additional Instructions: Total Knee Discharge Instructions Activity: The most important activity is to walk and to work on gentle motion (both flexion and extension). You should try to take short walks a few times a day. It is important that when resting you work on keeping the knee straight. Avoid putting a pillow behind the knee as this will encourage flexion. Work on range of motion exercises as provided by Physical Therapy. - Start outpatient physical therapy within 2 weeks. - You should wear the MURPHY hose on both legs for 2 weeks. You may remove these at night. You may also use any compression sock in place of the MURPHY hose. - Utilize [employer] to review exercises, see videos on exercises and obtain basic information pertaining to your surgery and your recovery. Dressing: Remove the Woodrow wrap by 2 days after your surgery and put on the MURPHY stocking given to you from the hospital. Keep the surgical dressing (underneath the WOODROW wrap) in place for at least one week. After the first week it may be removed and replaced with light gauze and tape or nothing. The wound and dressing may get wet after 3 days but avoid soaking the dressing or otherwise it will need to be changed. Many people prefer covering the dressing with cling wrap (saran wrap) to minimize it from getting soaked. If it gets wet, just pat dry. If it starts to peel off then it will need to be changed. Medications: - You should take Tylenol and anti-inflammatory Celebrex as your primary pain control medications. If the Celebrex is too expensive or not covered, please call the office for another alternative (Advil/Ibuprofen or Naproxen/Aleve) - You have been prescribed a stronger pain medication Oxycodone for breakthrough pain, take as needed as prescribed. - You have also been prescribed a stomach acid reduction agent Pantoprozole to help reduce stomach acid and reflux. - You have been prescribed Gabapentin to take at night for restlessness and nerve pain. - You resume taking your Plavix tomorrow in addition to baby Aspirin twice a day for blood clot prevention. - You have also been prescribed Decadron to take to control post-operative nausea and pain. You will start this tomorrow. - If you have constipation you should take Colace (which has been prescribed) or Miralax (which is available [id number]). It takes most people 3-4 days to have a bowel movement. Follow-up: 2 weeks If you have any acute concerns or questions, please do not hesitate to contact the office at [phone]. You may contact Dr. Alfaro with any questions after hours through the hospital at [phone] or on his cell phone at [phone]. Referrals: David Alfaro MD [ [facility] STAFF PHYSICIAN] - Equipment/Supplies: Walker Activity:: Elevate Remove Dressings/Wound Care:: Do Not Remove Shower/Bathe:: Cover Diet:: As Tolerated Discharge Orders Discharge Orders: Discharge Order (Routine); Ordered 03/22/24 Ordered By: Sherley Vences
[2024-03-22] MEDS: Celecoxib 200 MG CAP 400 MG PO (07:34)
[2024-03-22] MEDS: Gabapentin 300 MG CAP PO (07:35)
[2024-03-22] MEDS: Acetaminophen 500 MG TAB 1000 MG PO (07:35)
[2024-03-22] MEDS: Lactated Ringers 1,000 ML 80 ML IV (07:55)
--- NOTE | 2024-03-22 08:05 | W.ANESPRE ---
General Info Date of Service Date Performed: 03/22/24 Height: 5 ft 4 in Weight: 114.4 kg Body Mass Index (BMI): 43.2 Surgical Procedure: Operation Date: 03/22/24 09:10 Proposed Procedure Side Surgeon p Knee Total Arthroplasty Left David Alfaro MD Meds Allergies and Home Medications Allergies Allergy/AdvReac Type Severity Reaction Status Date / Time animal dander Allergy Other (See Verified 03/22/24 07:18 Comment) house dust Allergy Other (See Verified 03/22/24 07:18 Comment) ragweed pollen Allergy Other (See Verified 03/22/24 07:18 Comment) Home Medication ?Medication ?Instructions ?Recorded calcium 500 mg (as 1 tab PO BID 09/01/19 carbonate)-vitamin D3 10 mcg (400 unit) tablet hydrocortisone 2.5 % topical cream 1 applic topical BID PRN 09/01/19 simvastatin 20 mg tablet 20 mg PO QHS 09/01/19 furosemide 20 mg tablet 20 mg PO DAILY 09/10/21 metoprolol succinate 50 mg 50 mg PO DAILY 09/10/21 tablet,extended release 24 hr triamcinolone acetonide 0.1 % 1 applic topical BID 09/10/21 topical ointment clopidogrel 75 mg tablet See Rx Instructions .Route 04/22/22 .COMPLEX #90 tabs bupropion HCl 300 mg 24 hr tablet, 150 mg PO QAM 09/02/22 extended release betamethasone, augmented 0.05 % 1 applic topical BID 02/04/23 topical ointment acetaminophen 500 mg tablet 1,000 mg (2 x 500 mg) PO Q8H PRN 03/22/24 pain #90 tabs celecoxib 200 mg capsule (Celebrex) 200 mg PO BID PRN #60 caps 03/22/24 dexamethasone 4 mg tablet 4 mg PO DAILY #2 tabs 03/22/24 docusate sodium 100 mg capsule 100 mg PO BID #30 caps 03/22/24 (Colace) gabapentin 300 mg capsule 300 mg PO QHS #14 caps 03/22/24 oxycodone 5 mg tablet 5 mg PO Q4H PRN #18 tabs 03/22/24 pantoprazole 40 mg tablet,delayed 40 mg PO DAILY #14 tabs 03/22/24 release Current Visit Medications: Current Medications Generic Name Dose Route Start Last Admin Trade Name Freq PRN Reason Stop Dose Admin Acetaminophen 1,000 mg 03/22/24 06:00 03/22/24 07:35 Acetaminophen 500 Mg Tab PO 03/22/24 23:59 1,000 mg PREOP MANUELA Administration Celecoxib 400 mg 03/22/24 06:00 03/22/24 07:34 Celecoxib 200 Mg Cap PO 03/22/24 23:59 400 mg PREOP MANUELA Administration Gabapentin 300 mg 03/22/24 06:00 03/22/24 07:35 Gabapentin 300 Mg Cap PO 03/22/24 23:59 300 mg PREOP MANUELA Administration Hydromorphone HCl 0.5 mg 03/22/24 07:30 Hydromorphone 2 Mg/Ml Syr IVP 04/21/24 07:29 Q2H PRN PRN Ringer's Solution 1,000 mls @ 80 mls/hr 03/22/24 06:00 03/22/24 07:55 IV 03/22/24 23:59 80 mls/hr INFUSION MANUELA Administration Cefazolin Sodium/Dextrose 2 gm in 50 mls @ 100 mls/hr 03/22/24 06:00 Ancef Duplex IVPB 03/22/24 23:59 PREOP MANUELA Tranexamic Acid/Sodium Chloride 1,000 mg in 100 mls @ 600 mls/hr 03/22/24 06:00 IVPB 03/22/24 23:59 PREOP MANUELA Cefazolin Sodium/Dextrose 1 gm in 50 mls @ 100 mls/hr 03/22/24 08:00 Ancef Duplex IVPB 03/23/24 00:29 Q8H MANUELA IV Miscellaneous Supplies 1 each 03/22/24 06:00 Iv Access IV 03/22/24 23:59 DIRECTED MANUELA Oxycodone HCl 0 mg 03/22/24 07:30 Oxycodone 5 Mg Tab PO 04/21/24 07:29 Q3H PRN PRN Pain Sodium Chloride 0 ml 03/22/24 06:00 Normal Saline Flush 10 Ml Syr IV 03/22/24 23:59 PRN PRN Sodium Chloride 0 ml 03/22/24 06:00 Normal Saline 10 Ml Vial IJ 03/22/24 23:59 DIRECTED PRN Sterile Water 0 ml 03/22/24 06:00 Water,Injection,Sterile 10 Ml Vial IJ 03/22/24 23:59 DIRECTED PRN PFSH Active Problems Active Problems: Problem Status Onset Code Osteoarthritis of left knee Acute M17.12 History of total right hip replacement Acute 02/04/23 Z96.641 Transient global amnesia Acute G45.4 Small vessel disease, cerebrovascular Acute I67.9 Medical History Medical History Arthralgia of ankle Arthropathy Chronic left hip pain Contact dermatitis Depressive disorder Diverticulitis Fibromyalgia Hyperlipidemia Low back pain Memory impairment Mild intermittent asthma MATHEWS (nonalcoholic steatohepatitis) Obesity Obstructive sleep apnea Osteoporosis Pain, joint, knee, right Phlebitis Rosacea Tension type headache Varicose vein of leg Surgical History Surgical History H/O vein stripping Hx of section Tobacco Smoking/Tobacco Use Status: Former Tobacco Use Alcohol Alcohol Intake: current Alcohol intake frequency: a few times a week Alcohol type: beer and wine Details: 2-3 GLASSES OF WINE WEEK Substance Use Substance use: Never Substance use type: does not use Vital Signs and Lab Results Vital Signs Most Recent Vital Signs in EMR: Most Recent Vital Signs Temp Pulse Resp BP Pulse Ox 36.2 C L 82 18 168/93 H 97 03/22/24 07:23 03/22/24 07:23 03/22/24 07:23 03/22/24 07:23 03/22/24 07:23 Lab Results Blood Type / Crossmatch: No Data to Display Complete Blood Count: White Blood Count 7.46 10^3/uL (4.4-10.8) 03/10/24 11:25 Red Blood Count 4.70 10^6/uL (3.93-5.22) 03/10/24 11:25 Hemoglobin 14.5 g/dL (11.2-15.7) 03/10/24 11:25 Hematocrit 45.2 % (36.0-46.0) 03/10/24 11:25 Platelet Count 253 10^3/uL (130-400) 03/10/24 11:25 Complete Metabolic Panel: Sodium 143 mmol/L (136-145) 03/10/24 11:25 Potassium 4.1 mmol/L (3.5-5.1) 03/10/24 11:25 Chloride 105 mmol/L (98-107) 03/10/24 11:25 Carbon Dioxide 30.5 mmol/L (21.0-32.0) 03/10/24 11:25 BUN 13 mg/dL (7-18) 03/10/24 11:25 Creatinine 1.1 mg/dL (0.55-1.02) H 03/10/24 11:25 Est GFR (CKD-EPI 2020) 52.08 (mL/min/1.73m2) 03/10/24 11:25 Calcium 9.0 mg/dL (8.5-10.1) 03/10/24 11:25 Glucose 87 mg/dL (74-106) 03/10/24 11:25 Liver Function Panel: No Data to Display Coagulation Panel: No Data to Display Cardiac Panel: No Data to Display Arterial Blood Gas: No Data to Display Venous Blood Gas: No Data to Display Pancreas Panel: No Data to Display Thyroid Panel: No Data to Display Infectious Disease: No Data to Display Blood Cultures: No Data to Display Toxicology Panel: No Data to Display Anesthesia Assessment and Plan Anesthesia History Personal History: No History of Anesthesia Complications Family History: No Family History of Anesthesia Complications Exercise Tolerance Exercise Tolerance: Metabolic Equivalents<4 Pertinent Negatives Pertinent Negatives: No Symptoms of GERD Cardiac & Pulmonary Exam Cardiac Exam: Normal S1/S2 Heart Sounds Pulmonary Exam: Clear Bilateral Breath Sounds Implantable Cardiac Device Does patient have a Pacemaker or an ICD?: No Airway Exam Known Difficult Airway: No Mallampati Class: 3 Mouth Opening: Normal (> 3cm) Thyromental Distance: Greater than 3 cm Neck Range of Motion: Full ROM Neck Circumference: Thick Teeth Condition: Normal Dentition ASA Classification ASA Score: ASA 3 Emergency Case?: No NPO Status NPO Status: NPO Clears >2 hours, Solids >8 hours Anesthesia Plan Resuscitation Status: Full Code Anesthesia Technique: Spinal Anesthesia Airway Planned: Natural Airway Pain Management: Surgeon and patient request nerve block Monitors Used: Standard Monitors
[2024-03-22] MEDS: ceFAZolin 2 GM/50 ML BAG IVPB (09:06)
--- NOTE | 2024-03-22 09:19 | ROE_ITS ---
Operative Note Operative Note PRE-OP DIAGNOSIS: Left Knee Osteoarthritis POST-OP DIAGNOSIS: same PROCEDURE: Left Total Knee Replacement SURGEON: David Alfaro [employer] INST[employer]ER AND REPAIRER: Sherley Vences ANESTHESIA TYPE: Spinal Refer to Anesthesia Record PATHOLOGY: none sent TOURNIQUET TIME: 0 COMPLICATIONS: None Patient was transported to: PACU Patient's condition: stable Implants: 1. Depuy Attune Cementless Cruciate Retaining Femoral Component, Size 6 Narrow 2. Depuy Attune Cementless Fixed Bearing Tibial Component, Size 5 3. Depuy Attune 6x6mm CR/FB Poly 4. Depuy Attune Patellar Component, Size 35 Indications: I have seen Hawa in clinic for symptoms of knee arthritis, confirmed with radiographic findings. She has exhausted nonoperative methods and was having significant limitations in daily function and desired better function and less pain. I discussed the technical details of a knee replacement. I explained the risks of the procedure to include, but not limited to, bleeding, infection, pain, stiffness, fracture, damage to nerves and vessels, damage to muscles and tendons, loosening, need for repeat procedure, blood clot and cardiopulmonary demise. Despite these risks, Hawa elected to proceed. Findings: There was significant signs of arthritis throughout the knee. Procedure Description: Hawa was greeted in the preoperative holding area where the correct side was identified and marked. The consent was reviewed with the patient and signed. The history and physical was updated. All questions were answered. Preoperative medications were administered: Acetaminophen 1000mg, Celebrex 400mg, and Gabapentin 300mg. An adductor canal block was then administered by the anesthesia team in the DSU. She was taken back to the operating room. A spinal anesthestic was then administered. The patient was placed into the supine position on the operating room table. Posts were placed for positioning during the procedure. All bony prominences were well padded. Prophylactic antibiotics in the form of Cefazolin were administered. 1g of Tranxemic Acid was given intravenously within 30 minutes of incision. The left leg was then prepped with Chloraprep and draped in a standard fashion with impervious stockinette. A second prep with Chloraprep was performed prior to application of Iodine impregnated skin protection. A timeout to confirm correct identity, side and site, procedure, allergies, anesthesia, and medical concerns was performed. With the knee in some flexion, a midline incision was made overlying the knee. Full thickness skin flaps were raised once the extensor mechanism was encountered. These were raised medially and laterally. Any bleeding was controlled with electrocautery. Once the extensor mechanism was fully exposed, a medial parapatellar arthrotomy was performed in a flexed position. All bleeding from the arthrotomy and the geniculate arteries was coagulated. A medial subperiosteal peel was performed with electrocautery to the midcoronal plane. Due to the significant varus deformity the entire medial tibial plateau was exposed. The fat pad was removed while keeping the patellar tendon protected. The anterior distal femur synovium was removed for later visualization. The ACL and PCL were resected and the anterior horn of the lateral meniscus was transected. The knee was then flexed with the patella everted. Large osteophytes from the tibia were removed. Large osteophytes from the femur were removed. Using a step drill, and based on preoperative templating, the femoral canal was entered. This was done with a step drill without any difficulty. The intramedullary distal femoral cut guide was inserted, set to a 5 degree valgus cut and 9mm cut thickness. The distal femoral cut guide was then held in position and pinned. With the soft tissues protected, the distal cut was performed. This was passed over a few times to ensure a planar cut. I then turned attention to the tibia. The extramedullary guide was placed onto the leg. The distal aspect was slid m edial to adjust for position of center of ankle and stay in line with shaft of the tibia. Approximately 3-5 degrees of posterior slope was kept in the proximal cutting guide. The center of the guide was aligned with the PCL. The stylus was used to assess cut thickness. The medial side, most involved side, was set for a 6mm cut, corresponding to 9mm laterally. This was then held in position and pinned into place with 2 additional pins and a cross pin for stability. The medial and lateral collateral ligaments were protected and the cut was performed. With this completed, it was assessed and noted to be of appropriate dimensions. The guide was removed. A spacer block was inserted and the knee was brought into extension. The 6mm spacer block provided full extension, without hyperextension and with stability of both the medial and lateral collateral ligaments was assessed. The pins from the femur and the tibia were then removed. The distal femur was then sized. The anterior stylus was placed onto the lateral ridge of the anterior femur. This indicated a size 6 femur. The external rotation of the guide was adjusted to 0 degrees to match the epicondylar axis, perpendicular to [place]?s line. The 4-in-1 cutting guide was the placed. The posterior medial femur cut was evaluated and appeared of good thickness. The spacer block was inserted underneath the cutting guide and stability was confirmed in 90 degrees of flexion. An scott wing was used to confirm appropriate position of the anterior cut to avoid notching. This cutting guide was ensured to be flush on the cut surface and then pinned into place with headed pins. While protecting the soft tissues, quad tendon, and collateral ligaments, the anterior and posterior cuts were performed with a saw. The central two pins were removed and the posterior and anterior chamfers were cut next. The notch-cutting guide was placed. This was pinned to lateralize the femoral component as much as possible while keeping it flush on the cut surface. This was then pinned into position. A reciprocating saw was used to make the notch cut. A rasp smoothed the cut surfaces. The medial and lateral menisci were r emoved. A trial femoral component was then inserted, impacted down to the cut surfaces, and the lug holes were drilled. A provisional trial tibial component was placed and the knee was brought through range of motion. There was noted to be excellent extension and flexion. There was no significant instability. The patella was tracking without thumbs. A size 6mm polyethylene component provided the best range of motion and stability with less than 2mm gapping with medial and lateral stress and full extension without significant hyperextension. The tibial cut surface was fully exposed. The tibia was then sized as a 5. The tibia had been previously marked during trialing to correspond to the center of the tibial component to help with rotation. The trial was aligned to this kenzie, approximately rotated to the medial 1/3rd of the tibial tubercle. The trial was pinned into place. The tibia was prepared with a reamer and a keel punch and lug holes. The knee was then brought into extension and the patella was measured as 22mm. Using the patellar clamp and cut guide, this was resected to a flat surface with at least 13mm of thickness remaining. The size 35 patella fit the best. This was oriented and then clamped into position. The lugs were drilled. The trial components were removed. The final components were opened on the back table. The periosteal and capsular tissues, especially posteriorly, around the knee were then systematically injected with a periarticular cocktail consisting of 246mg of Ropivacaine, 0.5mg of Epinephrine, 0.08mg of Clonidine, and 30mg of Ketorolac, diluted to 100cc. On the back table, with the implants opened, the cement was mixed. One batch of high viscosity cement was prepared with vacuum assistance. After the cement was ready a small amount was placed on the cut surface of the patella and the patellar button was clamped into position and held. While the cement was hardening, the cementless knee components were placed. Starting with the tibial component, the tibia was subluxed anteriorly and the lug holes of the component were lined up. The tibia was then impacted with an impactor and mallet until the tibial component was in contact with the tibia. The final polyethylene component was inserted. Then, the femoral component was inserted. The lug holes were aligned and the component was impacted into position. The knee was irrigated with Surgiphor Betadine solution. This was allowed to sit in the knee for 3 minutes and then it was irrigated out with saline. After the cement had finally cured, approximately 15min, the clamp was removed from the patella and the knee was taken through range of motion. The patella was tracking with a no-thumbs technique. The capsule was then reapproximated with a No. 1 Vicryl at multiple locations. The capsule was finally closed with a No. 2 Stratafix, barbed suture. The second dosing of 1g TXA was started. Deep tissues were then reapproximated with 0 Vicryl and 2-0 Vicryl. The skin was closed with a running 3-0 Monocryl in a subcuticular fashion. This was reinforced with skin glue. A Mepilex silver dressing was applied along with a [id number]-[id number] DL wrap. A CryoCuff was applied. Hawa was transferred to the hospital bed without difficulty an suffering no apparent complication. She has a good prognosis. Physical therapy will start today and without restrictions, weight-bearing as tolerated. Aspirin 81mg BID and Plavix will be used for DVT prophylaxis. Date of Procedure: 03/22/24
[2024-03-22] MEDS: TRANEXAMIC ACID/SOD. CHL. 1,000 MG/100 ML BAG 600 MG IVPB (09:22)
--- NOTE | 2024-03-22 09:34 | W.ANESNERVE ---
Nerve Block Single Injection Procedure Date and Time Date Performed: 03/22/24 Procedure Start: 08:15 Location Where Procedure Performed Procedure Location: Day Surgery Unit Reason Performed: Postoperative Analgesia Requesting Provider: David Alfaro Timeout Performed Timeout Performed: Yes Monitoring Used ECG, Blood Pressure, SpO2 and See EMR for corresponding vital signs Sterility Sterility: Hand Hygiene, Surgical Cap, Surgical Mask, Sterile Gloves and Chlorhexidine Sedation Given During Procedure Sedation Given (Indicate Dose Given): No Sedation given Patient Mental Status Patient Mental Status: Awake Nerve Block 1st Nerve Block: Laterality: Left Block Type: Adductor Canal Ultrasound Image Saved?: Yes Needle / Catheter Used: 120mm SonoPlex II Local Anesthetic Bolus (Indicate Dose Given): Lidocaine used for local infiltration of skin, Injected in 3-5ml increments after negative blood aspiration, Bupivacaine 0.25% Dose:: 10ml and Exparel Dose:: 10ml Additives (Indicate Dose Given): None Ultrasound: Sterile probe cover and gel used Nerve Stimulator: Not Used Paresthesia: None Procedure Tolerated: No Complications Procedure Outcome: Successful Performed By: Mauro March
[2024-03-22] MEDS: oxyCODONE 5 MG TAB PO (12:11)
--- NOTE | 2024-03-22 13:03 | PT.INIE ---
PT Notes Visit Reasons: Left knee DJD Physical Therapy Day Surgery Initial Evaluation Date: 03/22/2024 Referring Doctor: ARABELLA Kennedy PT Orders: PT CONSULT: S/pP Ortho surgery Precautions: WBAT on L LE with AD. Patient Profile/Admitting Diagnosis: Hawa is a 78-year-old female with primary unilateral osteoarthritis of the L knee and is status post L total knee arthroplasty on postoperative day 0. PMHX: Medical History Arthralgia of ankle Arthropathy Chronic left hip pain Contact dermatitis Depressive disorder Diverticulitis Fibromyalgia Hyperlipidemia Low back pain Memory impairment Mild intermittent asthma MATHEWS (nonalcoholic steatohepatitis) Obesity Obstructive sleep apnea Osteoporosis Pain, joint, knee, right Phlebitis Rosacea Tension type headache Varicose vein of leg Surgical History H/O vein stripping Hx of section Social History/Home Situation: Lives with in a private home with 3 steps to enter with no rails. Independent with the use of single-point cane indoors and outdoors prior to surgery. Equipment Owned/DME: [facility], [facility] Subjective: Reports ache in the outer back of the L knee at 7-8/10 pain at rest that mildly increased after ambulation activity. Denies headache, chest pain, and lightheadedness throughout session. Objective: General Observation: Seated on bedside chair. DL wraps to the L LE. TEDS R LE. present in room throughout session. Mental Status: Alert and oriented x 4 Pain: As above ROM: Right Lower Extremity: Hip flexion WFL. Hip abduction WFL. Knee flexion WFL. Ankle dorsiflexion WFL. Ankle plantarflexion WFL. Left Lower Extremity: Hip flexion WFL. Hip abduction WFL. Knee flexion about 10 degrees to 90 degrees. Knee extension -10 degrees. Ankle dorsiflexion WFL. Ankle plantarflexion WFL Strength: Right Lower Extremity: Hip flexors 3-/5. Hip abductors 4/5. Knee flexors 4/5. Knee extensors 4-/5. Ankle dorsiflexors 5/5. Ankle plantarflexors 5/5. Left Lower Extremity:Hip flexors 4/5. Hip abductors 4/5. Knee flexors 3-/5. Knee extensors 3-/5. Ankle dorsiflexors 4/5. Ankle plantarflexors 5/5. Sensation: Intact as to pain and light pressure in B LE Bed Mobility/Transfers: Minimal cues provided for use of B UE for support, movement sequence, and AD management Sit to stand stand by assist Stand to sit contact-guard assist Bed to chair stand by assist Gait: Facilitated safe and correct performance of level surface ambulation covering a distance of 150 feet using front-wheeled walker with standby assist and minimal verbal cueing provided for reciprocal step through heel toe gait pattern. Stairs: Guided patient with safe and correct negotiation of 3 x 4-inch steps and 2 x 6 inch steps while holding one rail and using a SPC on the other side with step to gait pattern requiring only standby assist and minimal verbal cueing for movement sequence and overall safety. Balance: Static Sitting: Normal Dynamic Sitting: Normal Static Standing: Fair Dynamic Standing: Fair Special Tests: Mobility Limitations Standardized Measure [facility]-PAC 6 clicks Basic Mobility Inpatient Short Form: Raw Score: 22 CMS Score: 21% deficit Informed Consent/Education: Patient instructed in purpose of PT consult. Packet containing TKA exercise protocol has been given to patient. Education and training on initial set of exercises that can be done at home have been completed with patient. Trained patient with correct performance of exercises below to maximize motor control, joint flexibility, soft tissue extensibility of the L knee musculature to facilitate return to independent functional mobility performance. Trained patient with correct performance of exercises below to maximize motor control, joint flexibility, soft tissue extensibility of the [] knee musculature: Access Code: [email or web address] URL: [email or web address] Date: 03/22/2024 Prepared by: Carly Izquierdo Exercises - Supine Quad Set - 1 x daily - 7 x weekly - 1 sets - 10 reps - 5 hold - Supine Heel Slide - 1 x daily - 7 x weekly - 1 sets - 10 reps - 5 hold - Supine Ankle Pumps - 1 x daily - 7 x weekly - 1 sets - 10 reps - 5 hold - Small Range Straight Leg Raise - 1 x daily - 7 x weekly - 1 sets - 10 reps - 5 hold - Seated May - 1 x daily - 7 x weekly - 1 sets - 10 reps - 5 hold Assessment: Patient requires the use of a front-wheeled walker for all mobility ADL performance to maximize independence and reduce fall risk. Patient presents with clinical signs and symptoms consistent with current/admitting diagnoses that have resulted to mobility limitations, gait instability, generalized weakness, and impairment of motor control as demonstrated by the following impairment level findings: 1. Decreased strength to L knee major muscle groups 2. Impaired standing balance 3. Limitation of joint range of motion in L knee Impairments are contributing to the following functional limitations: 1. Inability to safely ambulate without assistive device 2. Increase completion time for mobility ADL performance 3. Increased fall risk Patient is assessed as a 80886 moderate complexity based on the following: History: 78-year-old female with impairment level findings, functional limitations, and past medical history as indicated above Examination: Demonstrable impairment in strength, balance, and mobility level with underlying impairments and functional limitations as documented above Presentation: Evolving Decision Makin moderate complexity Goals: N/A. PT evaluation and 1-2 treatment sessions only for functional mobility training using recommended AD and for HEP instruction. Plan of Care/Treatment Plan: N/A. PT evaluation and 1-2 treatment session only for functional mobility training using recommended AD and for HEP instruction. DISCHARGE RECOMMENDATIONS: Home when medically cleared by orthopedic surgeon. Recommend outpatient PT services in order to optimize functional mobility outcomes and facilitate return to independent community ambulation without an assistive device. TREATMENT CODE/TIME: 45079 x 27 minutes for 1 unit (13:03-13:30). Thank you for the opportunity to participate in the care of this patient. Carly Izquierdo PT, DPT, CLT [facility] [place], [place]
--- NOTE | 2024-03-22 13:27 | W.ANESPOSTOP ---
Postoperative Evaluation Date, Time and Location Date Performed: 03/22/24 Time Performed: 13:27 Patient Location: Day Surgery Unit Vital Signs Most Recent Imported Vital Signs: Most Recent Vital Signs Temp Pulse Resp BP Pulse Ox 36.2 C L 77 16 153/88 H 95 03/22/24 11:57 03/22/24 11:57 03/22/24 11:57 03/22/24 11:57 03/22/24 11:57 Pain Score Most Recent Pain Score: Most Recent Pain Score Pain Level 6 03/22/24 11:57 Assessment Mental Status: Awake (Alert & Oriented to Patient Baseline) Airway and Respiratory Function: Patent airway with normal (patient baseline) respiratory exam Cardiovascular Function: Hemodynamically Stable Hydration Status: Adequately Hydrated Nausea & Vomiting: No Nausea or Vomiting Pain: Pain is tolerable per patient Peripheral Nerve Block: Regional nerve block not resolved at time of post operative discharge
== END 2024-03-22 13:43 | disposition home or self-care (01) ==
PROVIDERS: PCP Neuromusculoskeletal Medicine & OMM; Visit Provider Student in an Organized Health Care Education/Training Program
PROC: (CPT 27447; principal; 2024-03-22 09:00)
DX: M17.12 Unilateral primary osteoarthritis, left knee (principal); G89.18 Other acute postprocedural pain; M25.562 Pain in left knee; I67.89 Other cerebrovascular disease; M79.7 Fibromyalgia; F32.A Depression, unspecified; J45.20 Mild intermittent asthma, uncomplicated; G47.33 Obstructive sleep apnea (adult) (pediatric); E66.9 Obesity, unspecified; Z68.41 Body mass index [BMI] 40.0-44.9, adult
CPT/HCPCS: 27447; 64447; 97162; C1776; C9290; J0665; J0690; J1100; J2250; J2371; J2401; J2405; J2704

== ENCOUNTER 2024-04-04 15:25 | Outpatient (CLI) | payer MEDICARE, SELFPAY ==
--- NOTE | 2024-04-04 10:30 | DI.RAD_ITS ---
Exam(s) XR KNEE LT 1V XR STANDING ALIGNMENT EXAM: XR STANDING ALIGNMENT CLINICAL HISTORY: 1ST POST OP S/P L TKA. TECHNIQUE: 2D digital imaging was performed. Standing AP views were performed from the pelvis throu gh the ankles. COMPARISON: CR XR KNEE LT 1V from 04/04/2024 FINDINGS: BONES: No acute fracture is present. No bony destructive lesion is seen. Leg length discrepancy: No significant overall leg length discrepancy at the level of the ischial tub erosities.. JOINTS: Knees: Status post placement of left total knee prosthesis. Satisfactory alignment. Mild to moderate narrowing medial femoral tibial joint space of the right knee. The ankle joints are unremarkable. The hips: Stable appearance of right hip prosthesis. The left hip is poorly penetrated with grossly unremarkable. SOFT TISSUE: Edema and chronic calcifications of the lower legs. Surgical clips in the bilateral taylor in regions. IMPRESSION: Satisfactory alignment of total knee prosthesis. No significant overall leg length discrepancy. DATA REPOSITORY: RADIATION DOSE DELIVERED:
== END 2024-04-04 15:26 | disposition home or self-care (01) ==
LOC: DIORS 15:26
PROVIDERS: PCP Neuromusculoskeletal Medicine & OMM; Referring Provider Neuromusculoskeletal Medicine & OMM; Visit Provider Physician Assistant
DX: Z96.652 Presence of left artificial knee joint (principal); Z47.1 Aftercare following joint replacement surgery
CPT/HCPCS: 99024; 73560; 77073

== ENCOUNTER → 2024-05-02 10:46 | Outpatient (BNVA) | payer MEDICARE, SELFPAY | PROVIDERS: PCP Neuromusculoskeletal Medicine & OMM; Referring Provider Neuromusculoskeletal Medicine & OMM; Visit Provider Student in an Organized Health Care Education/Training Program | DX: Z47.1 Aftercare following joint replacement surgery (principal); Z96.652 Presence of left artificial knee joint | CPT/HCPCS: 99024 ==

== ENCOUNTER → 2024-06-13 10:53 | Outpatient (BNVA) | payer MEDICARE, SELFPAY | PROVIDERS: PCP Neuromusculoskeletal Medicine & OMM; Referring Provider Neuromusculoskeletal Medicine & OMM; Visit Provider Student in an Organized Health Care Education/Training Program | DX: Z47.1 Aftercare following joint replacement surgery (principal); Z96.652 Presence of left artificial knee joint | CPT/HCPCS: 99024 ==